=== PATIENT | male | born 1995 | race African-American/Black ===

== ENCOUNTER 2017-10-27 04:50 | Emergency (ER) | payer SELFPAY, OTHER ==
[~2017-10-27] VITALS: Ht 182.9 cm; Wt 83.9 kg
[2017-10-27 05:01] VITALS: BP 138/92
[2017-10-27 05:20] VITALS: BP 0/0
--- NOTE | 2017-10-28 01:48 | Emergency Room Report ---
History of Present Illness General Chief Complaint: Medical Clearance Source: Patient Present Illness HPI Patient presents by [facility] for medical clearance Patient had an abrasion to the left knee and the right elbow At this time patient is nonverbal with us and refuses any questioning He uses the F word when asked if there was anything bothering him The injuries apparently occurred before or during custody And otherwise patient was ambulatory to the emergency room Allergies: Coded Allergies: No Known Allergies (Unverified , 10/27/17) Patient History Past Medical History: see triage record Pertinent Family History: unable to obtain Reviewed Nursing Documentation: PMH: Agreed; PSxH: Agreed Review of Systems All Other Systems: limited - Patient refusing to answer any further questioning Physical Exam Vital Signs Date Time Temp Pulse Resp B/P (MAP) Pulse Ox O2 Delivery O2 Flow Rate FiO2 10/27/17 04:53 98.3 100 18 138/92 98 Room Air 98.2 Sp02 EP Interpretation: reviewed, normal General Appearance: well appearing, no apparent distress Head: normocephalic, atraumatic Eyes: bilateral eye PERRL, bilateral eye EOMI ENT: normal pharynx Neck: full range of motion Musculoskeletal: other - Patient Ambulating without deficit Neurologic: responsive Skin: other - Abrasion to left knee and the right elbow Lymphatic: no adenopathy Medical Decision Making Diagnostic Impression: Primary Impression: refusal of care Additional Impression: abrasion ER Course Patient appears to have abrasions as noted medical exam is very limited patient does not allow any further examination or workup Patient is nonverbal and refusing to answer any questions At this time patient is hemodynamically stable and appears appropriate for further booking Last Vital Signs Date Time Temp Pulse Resp B/P (MAP) Pulse Ox O2 Delivery O2 Flow Rate FiO2 10/27/17 05:20 0/0 10/27/17 05:01 98.2 100 18 98 Room Air 98.2 Status: unchanged Disposition: D/C TO LAW ENFORCEMENT IN [facility] Condition: Stable Departure Forms: [facility] Clearance Patient Instructions: Abrasion, [id number] Additional Instructions: You have refused to discuss your medical presentation with us. If she change her mind or are willing further discussion please return to the ER. Otherwise appropriate follow-up with constantin Ruelas/your primary physician will be appropriate Edil Mary DO Oct 28, 2017 01:48
== END 2017-10-27 05:20 ==
LOC: EMR 05:02
DX: S80.212A Abrasion, left knee, initial encounter (principal); S50.311A Abrasion of right elbow, initial encounter; Y35.893A Legal intervention involving other specified means, suspect injured, initial encounter; Y92.9 Unspecified place or not applicable; Z53.20 Procedure and treatment not carried out because of patient's decision for unspecified reasons
CPT/HCPCS: 99283